=== PATIENT | male | born 1950 | race Caucasian/White ===

== ENCOUNTER 2017-06-07 18:09 | Emergency (ER) | payer BC, OTHER ==
[2017-06-07 18:21] VITALS: BP 133/81
--- NOTE | 2017-06-07 20:13 | ED ---
Skin Complaint - HPI Summary HPI Summary: Pt here w/ Rt hand laceration from dog bite earlier today. Was playing fetch with his dog when the dog accidentally bit his hand - dog and dedicated owner operator's imms are UTD. Denies numbness, tingling, weakness - moving them well. Bleeding controlled with pressure. Pt washed his hand out prior to arrival - reports he feels this is a fairly clean wound. - History of Current Complaint Chief Complaint: EDLacSutureRecheck Time Seen by Provider: 06/07/17 18:38 Stated Complaint: RIGHT HAND LAC Hx Obtained From: Patient Pain Intensity: 2 - Allergy/Home Medications Allergies/Adverse Reactions: Allergies Allergy/AdvReac Type Severity Reaction Status Date / Time No Known Allergies Allergy Verified 11/16/14 14:14 PMH/Surg Hx/FS Hx/Imm Hx Previously Healthy: Yes Endocrine/Hematology History: Denies: Hx Anticoagulant Therapy, Hx Blood Disorders Cardiovascular History: Denies: Hx Pacemaker/ICD GI History: Reports: Other GI Disorders - colon polyps History: Reports: Hx Kidney Stones Musculoskeletal History: Reports: Hx Orthopedic Injury - L knee meniscus tear Sensory History: Reports: Hx Contacts or Glasses Denies: Hx Hearing Aid Opthamlomology History: Reports: Hx Contacts or Glasses Psychiatric History: Denies: Hx Panic Disorder - Cancer History Cancer Type, 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 Hx Chemotherapy: No Hx Radiation Therapy: No Hx Palliative Cancer Treatment: No - Surgical History Surgery Procedure, Year, and Place: LT KNEE SCOPE 09/19/14 Hx Anesthesia Reactions: No - Immunization History Immunizations Up to Date: Unable to Obtain/Confirm - tetanus - declines vaccine tonight Infectious Disease History: No Infectious Disease History: Denies: Traveled Outside the [place] in Last 30 Days - Family History Known Family History: Positive: None - Social History Occupation: Employed Full-time Lives: With Family Alcohol Use: Daily Alcohol Amount: 1/day Hx Substance Use: No Substance Use Type: Reports: None Hx Tobacco Use: No Smoking Status (MU): Never Smoked Tobacco Review of Systems Constitutional: Negative Positive: no symptoms reported Musculoskeletal: Negative Skin: Other - see HPI Neurological: Negative Psychological: Normal All Other Systems Reviewed And Are Negative: Yes Physical Exam Triage Information Reviewed: Yes Vital Signs On Initial Exam: Initial Vitals Temp Pulse Resp BP Pulse Ox 98.1 F 72 16 133/81 98 06/07/17 18:13 06/07/17 18:13 06/07/17 18:13 06/07/17 18:13 06/07/17 18:13 Vital Signs Reviewed: Yes Appearance: Positive: Well-Appearing, No Pain Distress, Well-Nourished Skin: Positive: Warm - linear laceration over Rt thenar eminance - no vessels, tendons or nerves observed Head/Face: Positive: Normal Head/Face Inspection ENT: Positive: Hearing grossly normal Respiratory/Lung Sounds: Positive: Breath Sounds Present Cardiovascular: Positive: Pulses are Symmetrical in both Upper and Lower Extremities Musculoskeletal: Positive: Normal, Strength/ROM Intact Neurological: Positive: Normal, Sensory/Motor Intact, Alert, Oriented to Person Place, Time, CN Intact II-III Psychiatric: Positive: Normal Procedures - Laceration/Wound Repair 1 Location: upper extremity - Rt hand - thenar eminence Description: Linear Anesthesia: Local, 1.0%, Lido Length, Depth and Shape: 2cm x 3.5mm Betadine Prep?: Yes Irrigated w/ Saline (ccs): 250 - sterile water + hibaclens Laceration/Wound Explored: clean Closure: Single Layer Suture Type: Nylon - 5-0 Number of Sutures: 1 - middle of lac Layer Closure?: No Sterile Dressing Applied?: Yes - sterile gauze + JESSICA wrap Diagnostics - Vital Signs Vital Signs Temp Pulse Resp BP Pulse Ox 06/07/17 18:13 98.1 F 72 16 133/81 98 - Laboratory Lab Statement: Any lab studies that have been ordered have been reviewed, and results considered in the medical decision making process. Course/Dx - Diagnoses Provider Diagnoses: Laceration of right hand Discharge - Discharge Plan Condition: Stable Disposition: HOME Prescriptions: Amoxicillin/Clavulanate TAB* [Augmentin TAB 875*] 875 mg PO BID #19 tab Patient Education Materials: Animal Bite (ED), Care For Your Stitches (ED) Referrals: Jasmin Chavez MD [Primary Care Provider] - Additional Instructions: Keep dressing in place tonight - may start soapy soaks 2 x day starting tomorrow morning - rinse well and pat dry - reapply clean gauze dressing after soaks with JESSICA wrap for padding/protection Rest, ice, elevate to reduce swelling and reduce risk of bleeding Your suture is not absorbable and will need to be removed in 10-14 days - followup with PCP for wound check and suture removal. Complete antibiotics as directed *If you develop redness, swelling, streaking, purulent drainage, fever, chills, return to ED
[2017-06-07] MEDS ORDERED: Amoxicillin/Clavulanate TAB* 875 MG PO ONE (20:14)
[2017-06-07] MEDS ORDERED: Lidocaine 1% INJ* 10 MG/ML 30 ML SDV INJ ONE (20:21)
== END 2017-06-07 21:42 | disposition home or self-care (01) ==
LOC: ED 18:09
DX: S61.451A Open bite of right hand, initial encounter (principal); W54.0XXA Bitten by dog, initial encounter; Y92.9 Unspecified place or not applicable; C43.71 Malignant melanoma of right lower limb, including hip
CPT/HCPCS: 12001; 99282; A9270-GY; J2001